=== PATIENT | male | born 1975 | race Caucasian/White ===

== ENCOUNTER 2018-05-22 18:51 | Emergency (ER) | payer BC ==
[2018-05-22] MEDS ORDERED: Sodium Chloride 0.9% 10 ML Syringe FLUSH PRN (20:00)
--- NOTE | 2018-05-22 20:06 | EDM.PDOC ---
ED HPI GENERAL MEDICAL PROBLEM - General Chief Complaint: Neurological Problem Stated Complaint: HAD NECK SURGERY-FEELS OFF BALANCE Time Seen by Provider: 05/22/18 19:38 Source of Information: Reports: Patient, RN Notes Reviewed History Limitations: Reports: No Limitations - History of Present Illness INITIAL COMMENTS - FREE TEXT/NARRATIVE: Patient is a 42-year-old male who presents to the ED for evaluation of balance issues after Surgery. He states that on May 03, 2018 he had a C5-C6 disc replaced and fixation done by a doctor Eulalio at [facility]. He states that the surgery went well. He felt fine up until Monday. He states that on Monday the dizziness started, he did not characterizes as world spinning dizziness or lightheadedness he states that it was more as if he was off balance. He states this is not necessarily positional, he gets dizzy now from a sitting to standing position. He states that he has had a history of dizzy spells in the past where the dizziness makes his vision go dark and he gets a metallic taste in his mouth. He states that he has not been taking any pain medications for his neck surgery. He states that he has been eating and drinking okay as well. The patient states that he is not on any medications for blood pressure at this time. He denies any tinnitus, blurred vision, fever/ chills, nausea/vomiting/diarrhea, chest pain, shortness of breath or headache. His blood pressure at time of triage was 97/67. - Related Data Allergies Allergy/AdvReac Type Severity Reaction Status Date / Time No Known Allergies Allergy Verified 05/22/18 19:08 Past Medical History HEENT History: Reports: Impaired Vision - Past Surgical History Musculoskeletal Surgical History: Reports: Other (See Below) Other Musculoskeletal Surgeries/Procedures:: c5-c6 surgery Social & Family History - Tobacco Use Smoking Status *Q: Never Smoker - Recreational Drug Use Recreational Drug Use: No ED ROS GENERAL - Review of Systems Review Of Systems: See Below Constitutional: Denies: Fever, Chills, Malaise HEENT: Reports: No Symptoms Respiratory: Reports: No Symptoms Cardiovascular: Reports: No Symptoms Endocrine: Denies: High Glucose, Low Glucose GI/Abdominal: Denies: Constipation, Diarrhea, Nausea, Vomiting : Reports: No Symptoms Musculoskeletal: Reports: No Symptoms Skin: Reports: No Symptoms Neurological: Reports: Dizziness. Denies: Confusion, Headache, Numbness, Syncope, Tingling, Trouble Speaking, Difficulty Walking Psychiatric: Reports: No Symptoms Hematologic/Lymphatic: Reports: No Symptoms Immunologic: Reports: No Symptoms ED EXAM, NEURO - Physical Exam Exam: See Below Exam Limited By: No Limitations General Appearance: Alert, WD/WN, No Apparent Distress Eye Exam: Bilateral Eye: EOMI, Normal Inspection, PERRL Ears: Normal External Exam, Normal Canal, Hearing Grossly Normal, Normal TMs Nose: Normal Inspection Throat/Mouth: Normal Inspection, Normal Lips, Normal Teeth, Normal Gums, Normal Oropharynx, Normal Voice, No Airway Compromise Head Exam: Atraumatic, Normocephalic Neck: Other (Patient is in a soft neck brace at this time. He states that there is no pain in his neck) Respiratory/Chest: No Respiratory Distress, Lungs Clear, Normal Breath Sounds, No Accessory Muscle Use, Chest Non-Tender Cardiovascular: Normal Peripheral Pulses, Regular Rate, Rhythm, No Murmur GI/Abdominal: Normal Bowel Sounds, Soft, Non-Tender, No Distention, No Mass Neurological: Alert, Normal Mood/Affect, Normal Dorsiflexion, Normal Plantar Flexion, Normal Gait, Normal Reflexes, No Motor/Sensory Deficits, Oriented x 3 Extremities: Normal Inspection, Normal Range of Motion, Normal Capillary Refill Psychiatric: Normal Affect, Normal Mood Skin Exam: Warm, Dry, Intact, Normal Color, No Rash Course - Vital Signs Last Recorded V/S: Last Vital Signs Temp 97.9 F 05/22/18 19:06 Pulse 52 L 05/22/18 23:08 Resp 16 05/22/18 23:08 BP 109/71 05/22/18 23:08 Pulse Ox 99 05/22/18 23:08 Orthostatic Blood Pressure [ 90/68 Standing] Orthostatic Blood Pressure [ 92/71 Sitting] Orthostatic Blood Pressure [ 92/59 Supine] - Orders/Labs/Meds Orders: Active Orders 24 hr Category Date Time Status Peripheral IV Care [RC] . DIRECTED Care 05/22/18 20:00 Active Sodium Chloride 0.9% [Normal Saline] 1,000 ml Med 05/22/18 20:15 Active IV ASDIRECTED Sodium Chloride 0.9% [Normal Saline] 1,000 ml Med 05/22/18 22:00 Active IV ASDIRECTED Sodium Chloride 0.9% [Saline Flush] Med 05/22/18 20:00 Active 10 ml FLUSH ASDIRECTED PRN Peripheral IV Insertion Adult [OM.PC] Routine Oth 05/22/18 20:00 Ordered Medication Orders Sodium Chloride (Normal Saline) 1,000 mls @ 999 mls/hr IV ASDIRECTED RODRIGO Last Admin: 05/22/18 20:27 Dose: 999 mls/hr Sodium Chloride (Normal Saline) 1,000 mls @ 999 mls/hr IV ASDIRECTED RODRIGO Last Admin: 05/22/18 22:01 Dose: 999 mls/hr Sodium Chloride (Saline Flush) 10 ml FLUSH ASDIRECTED PRN PRN Reason: Keep Vein Open Last Admin: 05/22/18 20:10 Dose: 10 ml Labs: Laboratory Tests 05/22/18 05/22/18 Range/Units 20:10 20:10 WBC 4.28 (4.23-9.07) K/mm3 RBC 4.62 L (4.63-6.08) M/mm3 Hgb 14.1 (13.7-17.5) gm/L Hct 42.1 (40.1-51.0) % MCV 91.1 (79.0-92.2) fl MCH 30.5 (25.7-32.2) pg MCHC 33.5 (32.2-35.5) g/dl RDW Std Deviation 43.6 (35.1-43.9) fL Plt Count 198 (163-337) K/mm3 MPV 10.5 (9.4-12.3) fl Neutrophils % (Manual) 54 (40-60) % Band Neutrophils % 0 (0-10) % Lymphocytes % (Manual) 38 (20-40) % Atypical Lymphs % 0 % Monocytes % (Manual) 7 (2-10) % Eosinophils % (Manual) 1 (0.8-7.0) % Basophils % (Manual) 0 L (0.2-1.2) Platelet Estimate Adequate Plt Morphology Comment Normal RBC Morph Comment Normal Sodium 142 (136-145) mEq/L Potassium 3.9 (3.5-5.1) mEq/L Chloride 108 H (98-107) mEq/L Carbon Dioxide 27 (21-32) mEq/L Anion Gap 10.9 (5-15) BUN 13 (7-18) mg/dL Creatinine 1.0 (0.7-1.3) mg/dL Est Cr Clr Drug Dosing 102.49 mL/min Estimated GFR (MDRD) > 60 (>60) mL/min BUN/Creatinine Ratio 13.0 L (14-18) Glucose 97 (74-106) mg/dL Calcium 8.1 L (8.5-10.1) mg/dL Total Bilirubin 0.3 (0.2-1.0) mg/dL AST 13 L (15-37) U/L ALT 19 (16-63) U/L Alkaline Phosphatase 47 (46-116) U/L Total Protein 6.0 L (6.4-8.2) g/dl Albumin 3.0 L (3.4-5.0) g/dl Globulin 3.0 gm/dL Albumin/Globulin Ratio 1.0 (1-2) Ethyl Alcohol 0.00 (0.00) gm% Meds: Medications Generic Name Dose Route Start Last Admin Trade Name Freq PRN Reason Stop Dose Admin Sodium Chloride 1,000 mls @ 999 mls/hr 05/22/18 20:15 05/22/18 20:27 Normal Saline IV 999 mls/hr ASDIRECTED RODRIGO Administration Sodium Chloride 1,000 mls @ 999 mls/hr 05/22/18 22:00 05/22/18 22:01 Normal Saline IV 999 mls/hr ASDIRECTED RODRGIO Administration Sodium Chloride 10 ml 05/22/18 20:00 05/22/18 20:10 Saline Flush FLUSH 10 ml ASDIRECTED PRN Administration Keep Vein Open - Re-Assessments/Exams Free Text/Narrative Re-Assessment/Exam: 05/22/18 20:06 Patient presents to the ED for the evaluation of dizziness like symptoms. The RN did do Ortho vial signs: Standing, 90/68 heart rate 85, sitting, 92/71 heart rate 72, supine, 92/59 heart rate 60. It is likely this is due just to volume depletion and orthostasis I have ordered CBC and CMP, and a blood alcohol level for further evaluation. Will start IV fluids to see if this doesn't help his situation. 05/22/18 21:56 Patient was re-assessed at bedside, he states that he tried to stand up and still was dizzy. His labs have returned and do not show any abnormality that should be attributed to his dizziness. I have ordered a second bag of fluids to be run in. 05/22/18 23:09 Patient states that he feels better after the second bag of fluids. He will be discharged home with general recommendations. Departure - Departure Time of Disposition: 23:09 Disposition: Home, Self-Care 01 Condition: Fair Clinical Impression: Dizziness Low blood pressure Qualifiers: Hypotension type: orthostatic hypotension Qualified Code(s): I95.1 - Orthostatic hypotension - Discharge Information *PRESCRIPTION DRUG MONITORING PROGRAM REVIEWED*: No *COPY OF PRESCRIPTION DRUG MONITORING REPORT IN PATIENT PHYLICIA: No Instructions: Hypotension, [id number], Dizziness, [id number] Referrals: PCP,None [Primary Care Provider] - Forms: ED Department Discharge Additional Instructions: You have been evaluated in the ED tonight for your dizziness. Your blood pressure was low at this visit, you have been given 2 bags of IV fluid in correction of this. Your labs were essentially within normal limits and did not demonstrate any acute abnormalities at this time. Recommend that you establish care with a primary care provider as soon as able please call [phone] to do so. Any family practice provider will do. Recommend that you increase your oral fluid intake and obtain some Gatorades or Powerades to drink tomorrow. Please return to the ED if her symptoms change or worsen. - My Orders Last 24 Hours: My Active Orders 05/22/18 20:00 Peripheral IV Care [RC] . DIRECTED Sodium Chloride 0.9% [Saline Flush] 10 ml FLUSH ASDIRECTED PRN Peripheral IV Insertion Adult [OM.PC] Routine 05/22/18 20:15 Sodium Chloride 0.9% [Normal Saline] 1,000 ml IV ASDIRECTED 05/22/18 22:00 Sodium Chloride 0.9% [Normal Saline] 1,000 ml IV ASDIRECTED - Assessment/Plan Last 24 Hours: My Active Orders 05/22/18 20:00 Peripheral IV Care [RC] . DIRECTED Sodium Chloride 0.9% [Saline Flush] 10 ml FLUSH ASDIRECTED PRN Peripheral IV Insertion Adult [OM.PC] Routine 05/22/18 20:15 Sodium Chloride 0.9% [Normal Saline] 1,000 ml IV ASDIRECTED 05/22/18 22:00 Sodium Chloride 0.9% [Normal Saline] 1,000 ml IV ASDIRECTED
[2018-05-22] MEDS ORDERED: Sodium Chloride 0.9% 1,000 ML IV SCH ×2 (20:15→22:00)
== END 2018-05-22 23:16 | disposition home or self-care (01) ==
LOC: JD.ED 18:51
DX: I95.1 Orthostatic hypotension (principal)
CPT/HCPCS: 36415; 80053; 85007; 85027; 96360; 96361; 99284; G0480; J7040

== ENCOUNTER 2018-05-23 13:53 | Emergency (ER) | payer BC ==
[2018-05-23] MEDS ORDERED: Sodium Chloride 0.9% 1,000 ML IV SCH (15:15)
--- NOTE | 2018-05-23 16:41 | EDM.PDOC ---
<Andrzej Heath - Last Filed: 05/23/18 17:47> ED HPI GENERAL MEDICAL PROBLEM - General Chief Complaint: Neuro Symptoms/Deficits Stated Complaint: FEELS OFF BALANCE Time Seen by Provider: 05/23/18 15:08 - Related Data Allergies Allergy/AdvReac Type Severity Reaction Status Date / Time No Known Allergies Allergy Verified 05/22/18 19:08 Home Meds: Home Meds . [No Known Home Meds] 05/23/18 [History] Course - Vital Signs Last Recorded V/S: Last Vital Signs Temp 98.4 F 05/23/18 14:07 Pulse 69 05/23/18 14:07 Resp 20 05/23/18 14:07 BP 89/49 L 05/23/18 14:07 Pulse Ox 98 05/23/18 14:07 Orthostatic Blood Pressure [ 101/79 Sitting] Orthostatic Blood Pressure [ 101/79 Standing] Orthostatic Blood Pressure [ 97/64 Supine] - Orders/Labs/Meds Orders: Active Orders 24 hr Category Date Time Status Orthostatic Vital Signs [RC] ASDIRECTED Care 05/23/18 15:14 Active Sodium Chloride 0.9% [Normal Saline] 1,000 ml Med 05/23/18 15:15 Active IV ASDIRECTED Medication Orders Sodium Chloride (Normal Saline) 1,000 mls @ 999 mls/hr IV ASDIRECTED RODRIGO Last Admin: 05/23/18 15:20 Dose: 999 mls/hr Meds: Medications Generic Name Dose Route Start Last Admin Trade Name Freq PRN Reason Stop Dose Admin Sodium Chloride 1,000 mls @ 999 mls/hr 05/23/18 15:15 05/23/18 15:20 Normal Saline IV 999 mls/hr ASDIRECTED [facility] Administration - Re-Assessments/Exams Free Text/Narrative Re-Assessment/Exam: 05/23/18 17:47 The patient was modestly hypotensive when he first arrived, and felt unwell. He is received IV fluid, and his BP has improved. He is not orthostatic. His CBC and CMP yesterday were within normal limits. I do not see an indication to repeat today. I think the patient can safely be discharged home, and follow-up in the clinic tomorrow if he is still symptomatic. I agree with the management by CONNIE Sosa. Departure - Departure Disposition: Home, Self-Care 01 Clinical Impression: Low blood pressure Qualifiers: Hypotension type: orthostatic hypotension Qualified Code(s): I95.1 - Orthostatic hypotension - Discharge Information Instructions: Hypotension, [id number], Syncope, [id number] Referrals: PCP,None [Primary Care Provider] - Jodi Solomon MD [Physician] - Forms: ED Department Discharge Additional Instructions: You have been diagnosis with orthostatic hypotension and dehydration. She should continue increasing fluid intake and drink Gatorade. I recommend you follow up with Dr. Solomon or another provider in the clinic. [phone]. Return to the ER for any new or acute worsening symptoms. - My Orders Last 24 Hours: My Active Orders 05/23/18 15:14 Orthostatic Vital Signs [RC] ASDIRECTED 05/23/18 15:15 Sodium Chloride 0.9% [Normal Saline] 1,000 ml IV ASDIRECTED - Assessment/Plan Last 24 Hours: My Active Orders 05/23/18 15:14 Orthostatic Vital Signs [RC] ASDIRECTED 05/23/18 15:15 Sodium Chloride 0.9% [Normal Saline] 1,000 ml IV ASDIRECTED <Lillie Ramos - Last Filed: 05/23/18 18:04> ED HPI GENERAL MEDICAL PROBLEM - General Source of Information: Reports: Patient History Limitations: Reports: No Limitations - History of Present Illness INITIAL COMMENTS - FREE TEXT/NARRATIVE: 42 y/o male presents to ER with cc "feeling equilibrium is off." He states symptoms started 6 days ago. He experience "room spinning briefly after laying down." He states he has a feeling symptoms worsen when he goes from lying position to sitting position. He states the symptoms are brief. He denies chest pain, SOB nausea or vomiting. He denies blurred vision, headache or earache. He denies fever or chills. He was seen yesterday for similar symptoms. He was diagnosis of hypotension and dizziness. He had recent C-5 C6 dis replaced and fixation done by Dr. Tsai at [facility] May 03, 2018. Onset Date: 05/18/18 Onset Time: 12:00 Duration: Intermittent, Waxing/Waning Location: Reports: Head, Other (feeling " like head in wonky." ) Quality: Reports: Other (feeling off balance) Severity: Mild Improves with: Reports: Rest Worsens with: Reports: Movement (sitting up quickly) Associated Symptoms: Denies: Fever/Chills, Headaches, Nausea/Vomiting, Seizure, Shortness of Breath, Weakness Past Medical History HEENT History: Reports: Impaired Vision - Past Surgical History Musculoskeletal Surgical History: Reports: Other (See Below) Other Musculoskeletal Surgeries/Procedures:: c5-c6 surgery Social & Family History - Tobacco Use Smoking Status *Q: Never Smoker Second Hand Smoke Exposure: No - Caffeine Use Caffeine Use: Reports: None, Coffee - Recreational Drug Use Recreational Drug Use: Yes Recreational Drug Type: Reports: Marijuana/Hashish Recreational Drug Use Frequency: Daily ED ROS GENERAL - Review of Systems Review Of Systems: See Below Constitutional: Denies: Fever, Chills HEENT: Reports: Vertigo. Denies: Ear Pain, Vision Change Respiratory: Reports: No Symptoms Cardiovascular: Reports: No Symptoms Endocrine: Reports: No Symptoms GI/Abdominal: Reports: No Symptoms : Reports: No Symptoms Musculoskeletal: Reports: No Symptoms Skin: Reports: No Symptoms Neurological: Reports: Dizziness. Denies: Headache, Numbness, Seizure, Syncope , Tingling Psychiatric: Reports: No Symptoms Hematologic/Lymphatic: Reports: No Symptoms Immunologic: Reports: No Symptoms ED EXAM, NEURO - Physical Exam Exam: See Below Exam Limited By: No Limitations General Appearance: Alert, WD/WN, No Apparent Distress Eye Exam: Bilateral Eye: EOMI, PERRL Ears: Normal External Exam, Normal Canal, Hearing Grossly Normal, Normal TMs Nose: Normal Inspection, Normal Mucosa, No Blood Throat/Mouth: Normal Inspection, Normal Lips, Normal Teeth, Normal Gums, Normal Oropharynx, Normal Voice, No Airway Compromise Head Exam: Atraumatic, Normocephalic Neck: Normal Inspection, Supple, Non-Tender, Full Range of Motion Respiratory/Chest: No Respiratory Distress, Lungs Clear, Normal Breath Sounds, No Accessory Muscle Use, Chest Non-Tender Cardiovascular: Normal Peripheral Pulses, Regular Rate, Rhythm, No Edema, No Gallop, No JVD, No Murmur, No Rub GI/Abdominal: Normal Bowel Sounds, Soft, Non-Tender, No Organomegaly, No Distention, No Abnormal Bruit Neurological: Alert, Normal Mood/Affect, Normal Dorsiflexion, CN II-XII Intact, Normal Plantar Flexion, Normal Gait, Normal Reflexes, No Motor/Sensory Deficits , Oriented x 3 Back Exam: Normal Inspection, Full Range of Motion Extremities: Normal Inspection, Normal Range of Motion, Non-Tender, No Pedal Edema, Normal Capillary Refill Psychiatric: Normal Affect, Normal Mood Skin Exam: Warm, Dry, Intact, Normal Color, No Rash Course - Vital Signs Text/Narrative:: 42 y/o male presents to ER with cc feeling off balance intermittently. I don't feel he needs a CT at this time since he has no focal neuro deficits. His labs yesterday were unremarkable, therefore I do not feel he needs them repeated. He had a slight change in his orthostatic not enough to meet criteria for admission. I will discharge with instruction to increase his fluid intake and add Gatorade. I instructed him to follow up with PCP for further evaluation as needed. I did give him a referral to clinic since he doesn't have a PCP. I instructed him to return to the ER for any new or acute worsening symptoms. Departure - Departure Time of Disposition: 18:02 - Discharge Information *PRESCRIPTION DRUG MONITORING PROGRAM REVIEWED*: Not Applicable *COPY OF PRESCRIPTION DRUG MONITORING REPORT IN PATIENT PHYLICIA: Not Applicable
== END 2018-05-23 18:22 | disposition home or self-care (01) ==
LOC: JD.ED 13:53
DX: I95.1 Orthostatic hypotension (principal)
CPT/HCPCS: 96360; 99283; J7040